=== PATIENT | male | born 2000 | race Caucasian/White ===

== ENCOUNTER 2022-05-24 12:04 | Inpatient (IN) | payer BC, MEDICARE, MEDICAID ==
[~2022-05-24] VITALS: Ht 170.2 cm; Wt 110.5 kg
[2022-05-24] MEDS ORDERED: NS 1,000 ML IV ONE ×2 (12:20→15:05)
[2022-05-24] MEDS ORDERED: ONDANSETRON 4MG 2ML VIAL IV ONE (12:20)
[2022-05-24 12:31] LABS: BASO # 0.1 10^3/uL (0.0-0.2); BASO % 0.8 % (0.0-1.0); EOS # 0.6 10^3/uL (0.0-0.5); EOS % 7.4 % (0.0-3.0); HEMATOCRIT 42.1 % (36.0-47.0); HEMOGLOBIN 14.3 g/dl (12.0-15.5); LYMPH % 35.9 % (24.0-44.0); MEAN CORPUSCULAR HEMOGLOBIN 30.2 pg (27.0-33.0); MEAN CORPUSCULAR VOLUME 88.8 fl (80.0-96.0); MONO # 0.6 10^3/uL (0.0-0.8); MONO % 6.8 % (2.0-8.0); NEUTROPHILS # 4.1 10^3/uL (1.5-8.5); NEUTROPHILS % 48.6 % (36.0-66.0); PLATELET COUNT, AUTOMATED 173 10^3/uL (150-450); RED BLOOD COUNT 4.74 10^6/uL (4.00-5.40); WHITE BLOOD COUNT 8.4 10^3/uL (4.0-10.0)
[2022-05-24 13:07] LABS: ACETAMINOPHEN LEVEL < 2.0 UG/ML (10.0-30.0); ALT/SGPT 30 U/L (12-78); BILIRUBIN,DIRECT < 0.1 MG/DL (0.0-0.2); BILIRUBIN,TOTAL 0.3 MG/DL (0.2-1.0); BLOOD UREA NITROGEN 14 MG/DL (7-18); CALCIUM LEVEL 9.1 MG/DL (8.5-10.1); CARBON DIOXIDE LEVEL 23 MEQ/L (21-32); CHLORIDE LEVEL 111 MEQ/L (98-107); CREATININE FOR GFR 0.92 MG/DL (0.55-1.30); ETHYL ALCOHOL (ETHANOL) 0.219 % (0.000-0.010); GLOMERULAR FILTRATION RATE > 60.0 (>60); GLUCOSE, FASTING 106 MG/DL (70-100); POTASSIUM SERUM 4.2 MEQ/L (3.5-5.1); SALICYLATE LEVEL 2.3 MG/DL (5.0-30.0); SODIUM LEVEL 143 MEQ/L (136-145); TOTAL PROTEIN 6.9 GM/DL (6.4-8.2)
[2022-05-24 13:08] LABS: RSV AMPLIFICATION NEGATIVE (NEGATIVE)
[2022-05-24] MEDS ORDERED: BUPR150T12 PO (18:24)
[2022-05-24] MEDS ORDERED: HYDR-3363 PO (18:24)
[2022-05-24] MEDS ORDERED: ZOLO100T PO (18:24)
[2022-05-24] MEDS ORDERED: ESTR2TAB3 PO (18:24)
[2022-05-24] MEDS ORDERED: SPIR100T3 PO (18:24)
[2022-05-24] MEDS ORDERED: NALT50TA4 PO (18:24)
[2022-05-24] MEDS ORDERED: ARIP10TA32 PO (18:24)
[2022-05-24] MEDS ORDERED: BUSP10TA PO (18:24)
[2022-05-24] MEDS ORDERED: HOME MED LIST COMPLETE! XX SCH (18:25)
[2022-05-24 19:03] LABS: AMPHETAMINES LEVEL URINE NEGATIVE (NEGATIVE); BARBITURATES URINE NEGATIVE (NEGATIVE); BENZODIAZEPINES URINE NEGATIVE (NEGATIVE); CANNABINOIDS URINE NEGATIVE (NEGATIVE); COCAINE METABOLITE URINE NEGATIVE (NEGATIVE); METHADONE URINE NEGATIVE (NEGATIVE); OPIATES URINE NEGATIVE (NEGATIVE); PHENCYCLIDINE URINE NEGATIVE (NEGATIVE)
[2022-05-25] MEDS: busPIRone 10 MG TAB PO SCH ×3 (09:20→21:00)
[2022-05-25] MEDS: SERTRALINE HCL 50 MG TAB PO SCH (09:20)
[2022-05-25] MEDS: estradioL 1 MG TAB PO SCH (09:20)
[2022-05-25] MEDS: ARIPiprazole 10 MG TAB PO SCH (09:20)
[2022-05-25] MEDS: NALTREXONE 50 MG TAB PO SCH (09:20)
[2022-05-25] MEDS: buPROPion **XL** TABLET 150MG (WELLBUTRIN XL) PO SCH (09:20)
[2022-05-25] MEDS: SPIRONOLACTONE 50 MG TAB PO SCH (09:20)
[2022-05-25] MEDS ORDERED: LORazepam 1 MG TAB PO ONE (21:30)
[2022-05-26] MEDS ORDERED: LORazepam 2 MG TAB PO ONE (03:00)
[2022-05-26] MEDS: SPIRONOLACTONE 50 MG TAB PO SCH (09:08)
[2022-05-26] MEDS: buPROPion **XL** TABLET 150MG (WELLBUTRIN XL) PO SCH (09:08)
[2022-05-26] MEDS: busPIRone 10 MG TAB PO SCH ×3 (09:08→20:05)
[2022-05-26] MEDS: ARIPiprazole 10 MG TAB PO SCH (09:08)
[2022-05-26] MEDS: SERTRALINE HCL 50 MG TAB PO SCH (09:09)
[2022-05-26] MEDS: estradioL 1 MG TAB PO SCH (09:12)
[2022-05-26] MEDS: NALTREXONE 50 MG TAB PO SCH (09:13)
[2022-05-26] MEDS ORDERED: MAALOX 30 ML SUSP *UDC PO PRN (14:20)
[2022-05-26] MEDS ORDERED: ACETAMINOPHEN TAB 650MG DOSE (2X325MG) PO ONE (14:45)
[2022-05-26] MEDS ORDERED: LORazepam 2 MG TAB PO PRN (14:55)
[2022-05-26 15:04] VITALS: BP 132/72
[2022-05-26] MEDS: MULTIVITAMINS/MINERALS THERAP 1 TAB PO SCH (15:47)
[2022-05-26] MEDS: ACETAMINOPHEN TAB 650MG DOSE (2X325MG) PO PRN (15:47)
[2022-05-26] MEDS: FOLIC ACID 1MG TAB PO SCH (15:47)
[2022-05-26] MEDS: THIAMINE 100 MG TAB PO SCH ×2 (15:47→20:05)
[2022-05-26 15:50] VITALS: BP 132/72
[2022-05-26 17:42] VITALS: BP 131/69
[2022-05-26] MEDS: LORazepam 1 MG TAB PO PRN (21:19)
[2022-05-27 06:37] VITALS: BP 124/60
[2022-05-27] MEDS: LORazepam 1 MG TAB PO PRN ×2 (06:55→14:38)
[2022-05-27 07:55] VITALS: BP 134/77
[2022-05-27] MEDS ORDERED: buPROPion **XL** TABLET 150MG (WELLBUTRIN XL) PO SCH (09:00)
[2022-05-27] MEDS: SERTRALINE HCL 50 MG TAB PO SCH (09:08)
[2022-05-27] MEDS: MULTIVITAMINS/MINERALS THERAP 1 TAB PO SCH (09:08)
[2022-05-27] MEDS: THIAMINE 100 MG TAB PO SCH ×2 (09:08→20:14)
[2022-05-27] MEDS: ARIPiprazole 10 MG TAB PO SCH (09:09)
[2022-05-27] MEDS: busPIRone 10 MG TAB PO SCH ×3 (09:09→20:14)
[2022-05-27] MEDS: SPIRONOLACTONE 50 MG TAB PO SCH (09:09)
[2022-05-27] MEDS: FOLIC ACID 1MG TAB PO SCH (09:09)
[2022-05-27] MEDS: NALTREXONE 50 MG TAB PO SCH (09:09)
[2022-05-27] MEDS: estradioL 1 MG TAB PO SCH (09:10)
[2022-05-27] MEDS: NICOTINE 21MG/24HR 1 EA TRANSDERMAL TD SCH (13:46)
[2022-05-27 17:12] VITALS: BP 140/76
[2022-05-27 17:44] VITALS: BP 140/76
[2022-05-27] MEDS: traZODone 50 MG TAB PO PRN (20:14)
[2022-05-28 01:30] VITALS: BP 126/73
[2022-05-28 06:37] VITALS: BP 126/73
[2022-05-28] MEDS: SERTRALINE HCL 50 MG TAB PO SCH (08:04)
[2022-05-28] MEDS: busPIRone 10 MG TAB PO SCH ×3 (08:04→21:21)
[2022-05-28] MEDS: NALTREXONE 50 MG TAB PO SCH (08:04)
[2022-05-28] MEDS: THIAMINE 100 MG TAB PO SCH ×2 (08:05→21:21)
[2022-05-28] MEDS: ARIPiprazole 10 MG TAB PO SCH (08:06)
[2022-05-28] MEDS: FOLIC ACID 1MG TAB PO SCH (08:06)
[2022-05-28] MEDS: MULTIVITAMINS/MINERALS THERAP 1 TAB PO SCH (08:06)
[2022-05-28] MEDS: SPIRONOLACTONE 50 MG TAB PO SCH (08:06)
[2022-05-28] MEDS: estradioL 1 MG TAB PO SCH (08:07)
[2022-05-28 08:43] LABS: CHOLESTEROL RISK RATIO 2.782 (<5)
[2022-05-28] MEDS: NICOTINE 21MG/24HR 1 EA TRANSDERMAL TD SCH (10:18)
[2022-05-28 14:26] VITALS: BP 117/55
[2022-05-28 16:44] VITALS: BP 121/64
[2022-05-28] MEDS: traZODone 50 MG TAB PO PRN (21:20)
[2022-05-28 22:05] VITALS: BP 110/62
[2022-05-29 06:05] VITALS: BP 141/73
[2022-05-29] MEDS: NICOTINE 21MG/24HR 1 EA TRANSDERMAL TD SCH (08:05)
[2022-05-29] MEDS: estradioL 1 MG TAB PO SCH (08:10)
[2022-05-29] MEDS: FOLIC ACID 1MG TAB PO SCH (08:11)
[2022-05-29] MEDS: SPIRONOLACTONE 50 MG TAB PO SCH (08:11)
[2022-05-29] MEDS: MULTIVITAMINS/MINERALS THERAP 1 TAB PO SCH (08:11)
[2022-05-29] MEDS: busPIRone 10 MG TAB PO SCH ×3 (08:11→21:12)
[2022-05-29] MEDS: SERTRALINE HCL 50 MG TAB PO SCH (08:11)
[2022-05-29] MEDS: ARIPiprazole 10 MG TAB PO SCH (08:11)
[2022-05-29] MEDS: NALTREXONE 50 MG TAB PO SCH (08:11)
[2022-05-29 14:38] VITALS: BP 118/58
[2022-05-29 17:33] VITALS: BP 118/58
[2022-05-29] MEDS: traZODone 50 MG TAB PO PRN (21:13)
[2022-05-30 06:35] VITALS: BP 131/77
[2022-05-30] MEDS: SERTRALINE HCL 50 MG TAB PO SCH (08:38)
[2022-05-30] MEDS: NALTREXONE 50 MG TAB PO SCH (08:38)
[2022-05-30] MEDS: ARIPiprazole 15 MG TAB (AbiLIFY) PO SCH (08:38)
[2022-05-30] MEDS: NICOTINE 21MG/24HR 1 EA TRANSDERMAL TD SCH (08:38)
[2022-05-30] MEDS: estradioL 1 MG TAB PO SCH (08:39)
[2022-05-30] MEDS: MULTIVITAMINS/MINERALS THERAP 1 TAB PO SCH (08:39)
[2022-05-30] MEDS: busPIRone 10 MG TAB PO SCH ×3 (08:39→20:00)
[2022-05-30] MEDS: FOLIC ACID 1MG TAB PO SCH (08:39)
[2022-05-30] MEDS: SPIRONOLACTONE 50 MG TAB PO SCH (08:40)
[2022-05-30] MEDS: MOM 30ML SUSPENSION UDC PO PRN (10:25)
[2022-05-30] MEDS: ACETAMINOPHEN TAB 650MG DOSE (2X325MG) PO PRN (15:48)
[2022-05-30 17:05] VITALS: BP 127/67
[2022-05-30] MEDS: traZODone 100 MG TAB PO PRN (20:00)
[2022-05-31 06:56] VITALS: BP 142/78
[2022-05-31] MEDS: NICOTINE 21MG/24HR 1 EA TRANSDERMAL TD SCH (07:56)
[2022-05-31] MEDS: ARIPiprazole 15 MG TAB (AbiLIFY) PO SCH (08:01)
[2022-05-31] MEDS: busPIRone 10 MG TAB PO SCH ×3 (08:01→20:00)
[2022-05-31] MEDS: SPIRONOLACTONE 50 MG TAB PO SCH (08:01)
[2022-05-31] MEDS: MULTIVITAMINS/MINERALS THERAP 1 TAB PO SCH (08:01)
[2022-05-31] MEDS: SERTRALINE HCL 50 MG TAB PO SCH (08:02)
[2022-05-31] MEDS: NALTREXONE 50 MG TAB PO SCH (08:02)
[2022-05-31] MEDS: FOLIC ACID 1MG TAB PO SCH (08:02)
[2022-05-31] MEDS: estradioL 1 MG TAB PO SCH (08:02)
[2022-05-31 17:07] VITALS: BP 138/76
[2022-05-31] MEDS: traZODone 100 MG TAB PO PRN (19:59)
[2022-06-01] MEDS: NICOTINE 21MG/24HR 1 EA TRANSDERMAL TD SCH (08:43)
[2022-06-01] MEDS: SERTRALINE HCL 50 MG TAB PO SCH (08:49)
[2022-06-01] MEDS: estradioL 1 MG TAB PO SCH (08:49)
[2022-06-01] MEDS: FOLIC ACID 1MG TAB PO SCH (08:49)
[2022-06-01] MEDS: ARIPiprazole 15 MG TAB (AbiLIFY) PO SCH (08:49)
[2022-06-01] MEDS: SPIRONOLACTONE 50 MG TAB PO SCH (08:49)
[2022-06-01] MEDS: MULTIVITAMINS/MINERALS THERAP 1 TAB PO SCH (08:50)
[2022-06-01] MEDS: NALTREXONE 50 MG TAB PO SCH (08:50)
[2022-06-01] MEDS: busPIRone 10 MG TAB PO SCH ×3 (08:50→19:59)
[2022-06-01] MEDS: POLYSPORIN TOPICAL OINTMENT 15GM TOP SCH ×2 (15:10→19:59)
[2022-06-01 18:27] VITALS: BP 122/58
[2022-06-01] MEDS: traZODone 100 MG TAB PO PRN (19:59)
[2022-06-02] MEDS: POLYSPORIN TOPICAL OINTMENT 15GM TOP SCH ×3 (06:25→22:00)
[2022-06-02 06:49] VITALS: BP 120/57
[2022-06-02] MEDS: NALTREXONE 50 MG TAB PO SCH (08:14)
[2022-06-02] MEDS: MULTIVITAMINS/MINERALS THERAP 1 TAB PO SCH (08:14)
[2022-06-02] MEDS: busPIRone 10 MG TAB PO SCH ×3 (08:15→19:59)
[2022-06-02] MEDS: FOLIC ACID 1MG TAB PO SCH (08:15)
[2022-06-02] MEDS: SERTRALINE HCL 50 MG TAB PO SCH (08:15)
[2022-06-02] MEDS: ARIPiprazole 15 MG TAB (AbiLIFY) PO SCH (08:15)
[2022-06-02] MEDS: SPIRONOLACTONE 50 MG TAB PO SCH (08:15)
[2022-06-02] MEDS: estradioL 1 MG TAB PO SCH (08:16)
[2022-06-02] MEDS: NICOTINE 21MG/24HR 1 EA TRANSDERMAL TD SCH (09:00)
[2022-06-02] MEDS: MOM 30ML SUSPENSION UDC PO PRN (11:08)
[2022-06-02 18:20] VITALS: BP 118/71
[2022-06-02] MEDS: traZODone 100 MG TAB PO PRN (19:59)
[2022-06-03] MEDS: POLYSPORIN TOPICAL OINTMENT 15GM TOP SCH ×3 (06:17→20:24)
[2022-06-03 06:43] VITALS: BP 122/80
[2022-06-03] MEDS: NICOTINE 21MG/24HR 1 EA TRANSDERMAL TD SCH (08:25)
[2022-06-03] MEDS: MULTIVITAMINS/MINERALS THERAP 1 TAB PO SCH (08:29)
[2022-06-03] MEDS: estradioL 1 MG TAB PO SCH (08:29)
[2022-06-03] MEDS: FOLIC ACID 1MG TAB PO SCH (08:29)
[2022-06-03] MEDS: ARIPiprazole 15 MG TAB (AbiLIFY) PO SCH (08:30)
[2022-06-03] MEDS: NALTREXONE 50 MG TAB PO SCH (08:30)
[2022-06-03] MEDS: busPIRone 10 MG TAB PO SCH ×3 (08:30→20:23)
[2022-06-03] MEDS: SPIRONOLACTONE 50 MG TAB PO SCH (08:30)
[2022-06-03] MEDS: SERTRALINE HCL 50 MG TAB PO SCH (08:30)
[2022-06-03] MEDS: buPROPion **XL** TABLET 150MG (WELLBUTRIN XL) PO SCH (10:00)
[2022-06-03] MEDS ORDERED: hydrOXYzine 50 MG TAB PO ONE (16:00)
[2022-06-03] MEDS ORDERED: ONDANSETRON 4MG ORAL DISINTEGRATING TAB SL ONE (17:10)
[2022-06-03 18:34] VITALS: BP 128/71
[2022-06-03] MEDS: traZODone 100 MG TAB PO PRN (20:23)
[2022-06-04] MEDS: POLYSPORIN TOPICAL OINTMENT 15GM TOP SCH ×3 (05:47→20:08)
[2022-06-04 07:10] VITALS: BP 128/58
[2022-06-04] MEDS: NICOTINE 21MG/24HR 1 EA TRANSDERMAL TD SCH (08:28)
[2022-06-04] MEDS: SERTRALINE HCL 50 MG TAB PO SCH (08:32)
[2022-06-04] MEDS: ARIPiprazole 15 MG TAB (AbiLIFY) PO SCH (08:32)
[2022-06-04] MEDS: estradioL 1 MG TAB PO SCH (08:32)
[2022-06-04] MEDS: SPIRONOLACTONE 50 MG TAB PO SCH (08:33)
[2022-06-04] MEDS: FOLIC ACID 1MG TAB PO SCH (08:33)
[2022-06-04] MEDS: MULTIVITAMINS/MINERALS THERAP 1 TAB PO SCH (08:33)
[2022-06-04] MEDS: busPIRone 10 MG TAB PO SCH ×3 (08:33→20:08)
[2022-06-04] MEDS: buPROPion **XL** TABLET 150MG (WELLBUTRIN XL) PO SCH (08:33)
[2022-06-04] MEDS: NALTREXONE 50 MG TAB PO SCH (08:33)
[2022-06-04] MEDS: hydrOXYzine 50 MG TAB PO PRN ×3 (10:46→18:45)
[2022-06-04 18:00] VITALS: BP 138/89
[2022-06-04] MEDS: traZODone 100 MG TAB PO PRN (20:08)
[2022-06-05] MEDS: POLYSPORIN TOPICAL OINTMENT 15GM TOP SCH ×3 (05:42→20:00)
[2022-06-05 07:01] VITALS: BP 139/82
[2022-06-05] MEDS: SPIRONOLACTONE 50 MG TAB PO SCH (08:56)
[2022-06-05] MEDS: busPIRone 10 MG TAB PO SCH ×3 (08:57→20:00)
[2022-06-05] MEDS: estradioL 1 MG TAB PO SCH (08:58)
[2022-06-05] MEDS: NICOTINE 21MG/24HR 1 EA TRANSDERMAL TD SCH (09:00)
[2022-06-05] MEDS: SERTRALINE HCL 50 MG TAB PO SCH (09:01)
[2022-06-05] MEDS: FOLIC ACID 1MG TAB PO SCH (09:01)
[2022-06-05] MEDS: NALTREXONE 50 MG TAB PO SCH (09:01)
[2022-06-05] MEDS: buPROPion **XL** TABLET 150MG (WELLBUTRIN XL) PO SCH (09:02)
[2022-06-05] MEDS: MULTIVITAMINS/MINERALS THERAP 1 TAB PO SCH (09:02)
[2022-06-05] MEDS: ARIPiprazole 10 MG TAB PO SCH (09:02)
[2022-06-05] MEDS: hydrOXYzine 50 MG TAB PO PRN ×3 (10:13→19:15)
[2022-06-05 18:21] VITALS: BP 140/82
[2022-06-05] MEDS: traZODone 100 MG TAB PO PRN (20:00)
[2022-06-06] MEDS: POLYSPORIN TOPICAL OINTMENT 15GM TOP SCH ×3 (05:30→21:06)
[2022-06-06 06:26] VITALS: BP 118/84
[2022-06-06] MEDS: busPIRone 10 MG TAB PO SCH ×3 (08:11→19:58)
[2022-06-06] MEDS: SERTRALINE HCL 50 MG TAB PO SCH (08:11)
[2022-06-06] MEDS: ARIPiprazole 10 MG TAB PO SCH (08:11)
[2022-06-06] MEDS: SPIRONOLACTONE 50 MG TAB PO SCH (08:11)
[2022-06-06] MEDS: estradioL 1 MG TAB PO SCH (08:12)
[2022-06-06] MEDS: MULTIVITAMINS/MINERALS THERAP 1 TAB PO SCH (08:12)
[2022-06-06] MEDS: buPROPion **XL** TABLET 150MG (WELLBUTRIN XL) PO SCH (08:12)
[2022-06-06] MEDS: NALTREXONE 50 MG TAB PO SCH (08:12)
[2022-06-06] MEDS: FOLIC ACID 1MG TAB PO SCH (08:12)
[2022-06-06] MEDS: NICOTINE 21MG/24HR 1 EA TRANSDERMAL TD SCH (08:16)
[2022-06-06] MEDS: hydrOXYzine 50 MG TAB PO PRN ×3 (10:57→20:30)
[2022-06-06 18:27] VITALS: BP 147/89
[2022-06-06] MEDS: traZODone 100 MG TAB PO PRN (19:58)
[2022-06-07] MEDS: POLYSPORIN TOPICAL OINTMENT 15GM TOP SCH ×3 (05:51→20:12)
[2022-06-07 06:58] VITALS: BP 137/75
[2022-06-07] MEDS: SPIRONOLACTONE 50 MG TAB PO SCH (08:39)
[2022-06-07] MEDS: estradioL 1 MG TAB PO SCH (08:39)
[2022-06-07] MEDS: NALTREXONE 50 MG TAB PO SCH (08:40)
[2022-06-07] MEDS: ARIPiprazole 10 MG TAB PO SCH (08:40)
[2022-06-07] MEDS: MULTIVITAMINS/MINERALS THERAP 1 TAB PO SCH (08:40)
[2022-06-07] MEDS: SERTRALINE HCL 50 MG TAB PO SCH (08:40)
[2022-06-07] MEDS: buPROPion **XL** TABLET 150MG (WELLBUTRIN XL) PO SCH (08:40)
[2022-06-07] MEDS: FOLIC ACID 1MG TAB PO SCH (08:40)
[2022-06-07] MEDS: NICOTINE 21MG/24HR 1 EA TRANSDERMAL TD SCH (08:40)
[2022-06-07] MEDS: busPIRone 10 MG TAB PO SCH ×3 (08:40→20:12)
[2022-06-07] MEDS: hydrOXYzine 50 MG TAB PO PRN ×2 (09:08→16:52)
[2022-06-07] MEDS: CEPACOL LOZENGE PO PRN ×2 (15:33→17:50)
[2022-06-07 18:20] VITALS: BP 127/62
[2022-06-07] MEDS: traZODone 100 MG TAB PO PRN (20:11)
[2022-06-08] MEDS: POLYSPORIN TOPICAL OINTMENT 15GM TOP SCH ×3 (05:39→19:59)
[2022-06-08 06:32] VITALS: BP 128/87
[2022-06-08] MEDS: NICOTINE 21MG/24HR 1 EA TRANSDERMAL TD SCH (08:30)
[2022-06-08] MEDS: busPIRone 10 MG TAB PO SCH ×3 (08:36→20:00)
[2022-06-08] MEDS: ARIPiprazole 10 MG TAB PO SCH (08:36)
[2022-06-08] MEDS: SPIRONOLACTONE 50 MG TAB PO SCH (08:36)
[2022-06-08] MEDS: NALTREXONE 50 MG TAB PO SCH (08:36)
[2022-06-08] MEDS: estradioL 1 MG TAB PO SCH (08:36)
[2022-06-08] MEDS: FOLIC ACID 1MG TAB PO SCH (08:37)
[2022-06-08] MEDS: buPROPion **XL** TABLET 150MG (WELLBUTRIN XL) PO SCH (08:37)
[2022-06-08] MEDS: SERTRALINE HCL 50 MG TAB PO SCH (08:37)
[2022-06-08] MEDS: MULTIVITAMINS/MINERALS THERAP 1 TAB PO SCH (08:37)
[2022-06-08] MEDS: MOM 30ML SUSPENSION UDC PO PRN (10:59)
[2022-06-08] MEDS: CEPACOL LOZENGE PO PRN ×2 (12:36→15:36)
[2022-06-08] MEDS: hydrOXYzine 50 MG TAB PO PRN ×2 (15:09→20:56)
[2022-06-08 16:25] VITALS: BP 126/69
[2022-06-08] MEDS: traZODone 100 MG TAB PO PRN (20:56)
[2022-06-08] MEDS ORDERED: QUEtiapine FUMARATE 50MG TAB PO SCH (21:00)
[2022-06-09 06:23] VITALS: BP 117/70
[2022-06-09] MEDS: POLYSPORIN TOPICAL OINTMENT 15GM TOP SCH ×3 (06:32→21:02)
[2022-06-09] MEDS: CEPACOL LOZENGE PO PRN (06:54)
[2022-06-09] MEDS: NICOTINE 21MG/24HR 1 EA TRANSDERMAL TD SCH (09:00)
[2022-06-09] MEDS: SPIRONOLACTONE 50 MG TAB PO SCH (09:32)
[2022-06-09] MEDS: estradioL 1 MG TAB PO SCH (09:32)
[2022-06-09] MEDS: MULTIVITAMINS/MINERALS THERAP 1 TAB PO SCH (09:33)
[2022-06-09] MEDS: SERTRALINE HCL 50 MG TAB PO SCH (09:33)
[2022-06-09] MEDS: buPROPion **XL** TABLET 150MG (WELLBUTRIN XL) PO SCH (09:33)
[2022-06-09] MEDS: FOLIC ACID 1MG TAB PO SCH (09:33)
[2022-06-09] MEDS: busPIRone 10 MG TAB PO SCH ×3 (09:33→20:01)
[2022-06-09] MEDS: NALTREXONE 50 MG TAB PO SCH (09:33)
[2022-06-09] MEDS: hydrOXYzine 50 MG TAB PO PRN (13:59)
[2022-06-09 16:42] VITALS: BP 115/60
[2022-06-09] MEDS: ACETAMINOPHEN TAB 650MG DOSE (2X325MG) PO PRN (19:21)
[2022-06-09] MEDS: QUEtiapine FUMARATE 100 MG TAB PO SCH (20:01)
[2022-06-10] MEDS: POLYSPORIN TOPICAL OINTMENT 15GM TOP SCH ×3 (06:00→20:00)
[2022-06-10 06:38] VITALS: BP 111/61
[2022-06-10] MEDS: busPIRone 10 MG TAB PO SCH ×2 (08:11→15:37)
[2022-06-10] MEDS: SERTRALINE HCL 50 MG TAB PO SCH (08:11)
[2022-06-10] MEDS: NALTREXONE 50 MG TAB PO SCH (08:11)
[2022-06-10] MEDS: FOLIC ACID 1MG TAB PO SCH (08:12)
[2022-06-10] MEDS: SPIRONOLACTONE 50 MG TAB PO SCH (08:12)
[2022-06-10] MEDS: MULTIVITAMINS/MINERALS THERAP 1 TAB PO SCH (08:12)
[2022-06-10] MEDS: buPROPion **XL** TABLET 150MG (WELLBUTRIN XL) PO SCH (08:12)
[2022-06-10] MEDS: NICOTINE 21MG/24HR 1 EA TRANSDERMAL TD SCH (08:13)
[2022-06-10] MEDS: estradioL 1 MG TAB PO SCH (08:13)
[2022-06-10] MEDS: hydrOXYzine 50 MG TAB PO PRN ×2 (11:29→21:27)
[2022-06-10 16:22] VITALS: BP 118/63
[2022-06-10] MEDS: QUEtiapine FUMARATE 100 MG TAB PO SCH (20:00)
[2022-06-10] MEDS: traZODone 100 MG TAB PO PRN (20:58)
[2022-06-11] MEDS: POLYSPORIN TOPICAL OINTMENT 15GM TOP SCH ×3 (05:06→19:56)
[2022-06-11 06:31] VITALS: BP 116/60
[2022-06-11] MEDS: CEPACOL LOZENGE PO PRN ×2 (06:40→11:09)
[2022-06-11] MEDS: MOM 30ML SUSPENSION UDC PO PRN (07:58)
[2022-06-11] MEDS: MULTIVITAMINS/MINERALS THERAP 1 TAB PO SCH (08:00)
[2022-06-11] MEDS: buPROPion **XL** TABLET 150MG (WELLBUTRIN XL) PO SCH (08:00)
[2022-06-11] MEDS: SPIRONOLACTONE 50 MG TAB PO SCH (08:00)
[2022-06-11] MEDS: NALTREXONE 50 MG TAB PO SCH (08:00)
[2022-06-11] MEDS: SERTRALINE HCL 50 MG TAB PO SCH (08:01)
[2022-06-11] MEDS: estradioL 1 MG TAB PO SCH (08:02)
[2022-06-11] MEDS: NICOTINE 21MG/24HR 1 EA TRANSDERMAL TD SCH (08:03)
[2022-06-11] MEDS: FOLIC ACID 1MG TAB PO SCH (08:03)
[2022-06-11] MEDS: hydrOXYzine 50 MG TAB PO PRN ×3 (11:43→21:07)
[2022-06-11] MEDS: DOCUSATE SODIUM 100MG CAPSULE PO SCH (15:21)
[2022-06-11 16:56] LABS: ALBUMIN 3.7 GM/DL (3.2-5.2); ALT/SGPT 31 U/L (12-78); BILIRUBIN,TOTAL 0.3 MG/DL (0.2-1.0); BLOOD UREA NITROGEN 16 MG/DL (7-18); CALCIUM LEVEL 9.3 MG/DL (8.5-10.1); CARBON DIOXIDE LEVEL 28 MEQ/L (21-32); CHLORIDE LEVEL 105 MEQ/L (98-107); CREATININE FOR GFR 1.02 MG/DL (0.70-1.30); GLOMERULAR FILTRATION RATE > 60.0 (>60); GLUCOSE, FASTING 107 MG/DL (70-100); POTASSIUM SERUM 4.2 MEQ/L (3.5-5.1); SODIUM LEVEL 139 MEQ/L (136-145); TOTAL PROTEIN 6.7 GM/DL (6.4-8.2)
[2022-06-11 18:13] VITALS: BP 114/55
[2022-06-11] MEDS: QUEtiapine FUMARATE 100 MG TAB PO SCH (19:56)
[2022-06-12] MEDS: POLYSPORIN TOPICAL OINTMENT 15GM TOP SCH (05:34)
[2022-06-12] MEDS: CEPACOL LOZENGE PO PRN (06:44)
[2022-06-12 06:55] VITALS: BP 107/56
[2022-06-12] MEDS: NALTREXONE 50 MG TAB PO SCH (07:42)
[2022-06-12] MEDS: SERTRALINE HCL 50 MG TAB PO SCH (07:42)
[2022-06-12] MEDS: SPIRONOLACTONE 50 MG TAB PO SCH (07:45)
[2022-06-12] MEDS: MULTIVITAMINS/MINERALS THERAP 1 TAB PO SCH (07:45)
[2022-06-12] MEDS: buPROPion **XL** TABLET 150MG (WELLBUTRIN XL) PO SCH (07:45)
[2022-06-12] MEDS: DOCUSATE SODIUM 100MG CAPSULE PO SCH (07:45)
[2022-06-12] MEDS: FOLIC ACID 1MG TAB PO SCH (07:45)
[2022-06-12] MEDS: estradioL 1 MG TAB PO SCH (07:47)
[2022-06-12] MEDS: NICOTINE 21MG/24HR 1 EA TRANSDERMAL TD SCH (07:48)
[2022-06-12] MEDS: hydrOXYzine 50 MG TAB PO PRN ×2 (12:57→20:37)
[2022-06-12] MEDS: QUEtiapine FUMARATE 50MG TAB PO PRN (14:55)
[2022-06-12 16:05] VITALS: BP 134/72
[2022-06-12] MEDS: QUEtiapine FUMARATE 100 MG TAB PO SCH (20:00)
[2022-06-12] MEDS: traZODone 100 MG TAB PO PRN (20:36)
[2022-06-13 06:39] VITALS: BP 148/72
[2022-06-13] MEDS: NICOTINE 21MG/24HR 1 EA TRANSDERMAL TD SCH (08:03)
[2022-06-13] MEDS: DOCUSATE SODIUM 100MG CAPSULE PO SCH (08:07)
[2022-06-13] MEDS: estradioL 1 MG TAB PO SCH (08:07)
[2022-06-13] MEDS: MULTIVITAMINS/MINERALS THERAP 1 TAB PO SCH (08:07)
[2022-06-13] MEDS: FOLIC ACID 1MG TAB PO SCH (08:07)
[2022-06-13] MEDS: SERTRALINE HCL 50 MG TAB PO SCH (08:08)
[2022-06-13] MEDS: ARIPiprazole 15 MG TAB (AbiLIFY) PO SCH (08:08)
[2022-06-13] MEDS: NALTREXONE 50 MG TAB PO SCH (08:08)
[2022-06-13] MEDS: buPROPion **XL** TABLET 150MG (WELLBUTRIN XL) PO SCH (08:08)
[2022-06-13] MEDS: SPIRONOLACTONE 50 MG TAB PO SCH (08:09)
[2022-06-13] MEDS: QUEtiapine FUMARATE 50MG TAB PO PRN ×2 (09:35→15:55)
[2022-06-13 16:35] VITALS: BP 116/57
[2022-06-13] MEDS: QUEtiapine FUMARATE 100 MG TAB PO SCH (19:56)
[2022-06-14 06:26] VITALS: BP 142/72
[2022-06-14] MEDS: NICOTINE 21MG/24HR 1 EA TRANSDERMAL TD SCH (08:06)
[2022-06-14] MEDS: NALTREXONE 50 MG TAB PO SCH (08:11)
[2022-06-14] MEDS: SPIRONOLACTONE 50 MG TAB PO SCH (08:11)
[2022-06-14] MEDS: buPROPion **XL** TABLET 150MG (WELLBUTRIN XL) PO SCH (08:11)
[2022-06-14] MEDS: DOCUSATE SODIUM 100MG CAPSULE PO SCH (08:11)
[2022-06-14] MEDS: estradioL 1 MG TAB PO SCH (08:11)
[2022-06-14] MEDS: MULTIVITAMINS/MINERALS THERAP 1 TAB PO SCH (08:11)
[2022-06-14] MEDS: PILL CUTTER 1 EACH XX PRN (08:12)
[2022-06-14] MEDS: ARIPiprazole 15 MG TAB (AbiLIFY) PO SCH (08:12)
[2022-06-14] MEDS: SERTRALINE HCL 50 MG TAB PO SCH (08:12)
[2022-06-14] MEDS: QUEtiapine FUMARATE 50MG TAB PO PRN ×2 (08:12→15:16)
[2022-06-14] MEDS: FOLIC ACID 1MG TAB PO SCH (08:12)
[2022-06-14 16:51] VITALS: BP 122/69
[2022-06-14] MEDS: QUEtiapine FUMARATE 100 MG TAB PO SCH (20:02)
[2022-06-15 06:55] VITALS: BP 110/68
[2022-06-15] MEDS: QUEtiapine FUMARATE 50MG TAB PO PRN ×2 (08:30→14:26)
[2022-06-15] MEDS: SERTRALINE HCL 50 MG TAB PO SCH (08:31)
[2022-06-15] MEDS: SPIRONOLACTONE 50 MG TAB PO SCH (08:31)
[2022-06-15] MEDS: estradioL 1 MG TAB PO SCH (08:31)
[2022-06-15] MEDS: NALTREXONE 50 MG TAB PO SCH (08:32)
[2022-06-15] MEDS: MULTIVITAMINS/MINERALS THERAP 1 TAB PO SCH (08:32)
[2022-06-15] MEDS: ARIPiprazole 15 MG TAB (AbiLIFY) PO SCH (08:32)
[2022-06-15] MEDS: DOCUSATE SODIUM 100MG CAPSULE PO SCH (08:32)
[2022-06-15] MEDS: FOLIC ACID 1MG TAB PO SCH (08:32)
[2022-06-15] MEDS: PILL CUTTER 1 EACH XX PRN (08:32)
[2022-06-15] MEDS: buPROPion **XL** TABLET 150MG (WELLBUTRIN XL) PO SCH (08:32)
[2022-06-15] MEDS: NICOTINE 21MG/24HR 1 EA TRANSDERMAL TD SCH (08:38)
[2022-06-15] MEDS ORDERED: QUET50TA4 PO (13:05)
== END 2022-06-15 15:15 | disposition home or self-care (01) | DRG 753 ==
LOC: M ED 12:04 → EDSEX 12:04 → M ED INP 05-26 14:17 → M PSY 05-26 14:57
PROVIDERS: ADMIT Student in an Organized Health Care Education/Training Program; ATTEND Student in an Organized Health Care Education/Training Program
DX: F31.5 Bipolar disorder, current episode depressed, severe, with psychotic features (principal); R45.851 Suicidal ideations; F10.10 Alcohol abuse, uncomplicated; F60.3 Borderline personality disorder; Z79.899 Other long term (current) drug therapy; F12.90 Cannabis use, unspecified, uncomplicated; F17.200 Nicotine dependence, unspecified, uncomplicated; F15.90 Other stimulant use, unspecified, uncomplicated; Z88.8 Allergy status to other drugs, medicaments and biological substances; F41.9 Anxiety disorder, unspecified